=== PATIENT | female | born 1990 | race Caucasian/White ===

== ENCOUNTER → 2018-11-06 10:35 | Outpatient (CLI) | payer SELFPAY | PROVIDERS: Visit Provider Physician Assistant | DX: J02.9 Acute pharyngitis, unspecified (principal) | CPT/HCPCS: 87070; 87077 ==

== ENCOUNTER → 2019-06-11 17:36 | Outpatient (CLI) | payer SELFPAY ==
[2019-06-11 19:51] LABS: HCG Quantitative /Beta subunit 11147 mIU/mL
== END ==
PROVIDERS: Visit Provider Obstetrics & Gynecology
DX: O20.9 Hemorrhage in early pregnancy, unspecified (principal)
CPT/HCPCS: 36415; 84702

== ENCOUNTER → 2019-06-15 12:00 | Outpatient (CLI) | payer SELFPAY ==
[2019-06-15 13:39] LABS: HCG Quantitative /Beta subunit 30333 mIU/mL
== END ==
PROVIDERS: Visit Provider Obstetrics & Gynecology
DX: O20.9 Hemorrhage in early pregnancy, unspecified (principal); O20.0 Threatened abortion
CPT/HCPCS: 36415; 84702; 86850; 86900; 86901

== ENCOUNTER → 2019-09-21 12:14 | Outpatient (CLI) | payer BC, SELFPAY ==
--- NOTE | 2019-09-21 | DI.US.S_ITS ---
PROCEDURE: US OB >= 14 WEEKS FETUS INDICATIONS: 20 WEEK ANATOMY OUTSIDE/PRIOR DATING DATA: Last menstrual period (LMP): Unknown. LMP-based estimated date of delivery (ANUPAM): Not applicable. First dating scan (date and location): 06/26/19. Estimated date of delivery (ANUPAM) from first dating scan: 02/14/2020. TECHNIQUE: Real-time scanning was performed of the fetus, with image documentation and biometric measurements. Endovaginal scanning: Deferred COMPARISON: None. FINDINGS: General: A single living intrauterine gestation is present. Presentation: Vertex. Placenta: Placental position is fundal and anterior, without previa. Amniotic fluid index: 10.0 cm, normal range is 5-24 cm. heart rate: 130 beats per minute. Maternal cervical canal: 4.2 cm long. Normal lower limit is 2.5 cm. biometrics: Biparietal diameter: 4.6 cm, 19 weeks, 6 days Head circumference: 17.2 cm, 19 weeks, 5 days Abdominal circumference: 15.6 cm, 20 weeks, 5 days Femur length: 3.4 cm, 20 weeks, 4 days Estimated gestational age from initial scan: 19 weeks, one day. Composite gestational age from present scan: 20 weeks, 2 days Estimated weight and percentile: 361 g, 99th percentile Measurement variability for biometric dating: +/- 7 days from 14 weeks to 15 weeks 6 days gestation, +/- 10 days from 16 weeks to 21 weeks 6 days gestation, +/- 2 weeks from 22 weeks to 27 weeks 6 days gestation, +/- 3 weeks for 28 weeks gestation or later. weight reference: 4500 g or EFW >90/95% is considered macrosomia or large for gestational age. EFW <10% is small for gestational age. EFW 5% or less is considered intra-uterine growth restriction. Anatomic survey: Neuro: Ventricles are non-dilated at less than 10 mm. Cisterna magna is normal at 3-11 mm. Cerebellum is normal in size and morphology. Nuchal skin fold: Normal at less than 6 mm between 14-21 weeks gestational age. Face: Nose and lips, facial profile are normal. Spine: No evidence for spina bifida. Heart: 4-chambered heart is present, with normal ventricular outflow tracts. Diaphragm: Diaphragm is intact. Stomach: Left-sided stomach is present. Kidneys: No hydronephrosis. Normal is less than 5 mm in 2nd trimester, less than 7 mm in 3rd trimester. Cord: 3-vessel cord has orthotopic insertion. Bladder: Normal in size. Extremities: All 4 extremities identified. IMPRESSION: 1. Single living intrauterine with composite gestational age of 20 weeks, 2 days, 8 days ahead of the originally assigned gestational age. 2. Symmetric growth and normal anatomy. 3. Normal amniotic fluid volume. Dictated by: Ekta Fiore M.D. on 09/21/2019 at 15:38 Approved by: Ekta Fiore M.D. on 09/21/2019 at 15:49
== END ==
PROVIDERS: PCP Family Medicine; Visit Provider Family Medicine
DX: Z36.89 Encounter for other specified antenatal screening (principal); Z3A.20 20 weeks gestation of pregnancy
CPT/HCPCS: 76811

== ENCOUNTER → 2019-12-21 14:12 | Outpatient (CLI) | payer BC, SELFPAY ==
--- NOTE | 2019-12-21 14:18 | DI.US.S_ITS ---
PROCEDURE: US OB LIMITED INDICATIONS: SIZE GREATER THAN DATES OUTSIDE/PRIOR DATING DATA: Last menstrual period (LMP): Not available. LMP-based estimated date of delivery (ANUPAM): Not available. First dating scan (date and location): 06/26/2019 at . Estimated date of delivery (ANUPAM) from first dating scan: 02/14/2020. TECHNIQUE: Real-time scanning was performed of the fetus, with image documentation and biometric measurements. Biophysical profile was also obtained. Endovaginal scanning: Not performed COMPARISON: [facility], OB >= 14 WEEKS FETUS, 09/21/2019, 12:29. [facility], OB <= 14 WEEKS FETUS, 06/26/2019, 8:10. FINDINGS: General: A single living intrauterine gestation is present. Presentation: Vertex. Placenta: Placental position is anterior, without previa. Amniotic fluid index: Oh 0.9 cm, normal range is 5-24 cm; the largest pocket 6.2 cm. heart rate: 133 beats per minute. Maternal cervical canal: 4.7 cm long. Normal lower limit is 2.5 cm. biometrics: Biparietal diameter: 33 weeks 2 days Head circumference: 34 weeks 1 day Abdominal circumference: 35 weeks 2 days Femur length: 32 weeks 6 days Estimated gestational age from initial scan: 32 weeks 1 day. Composite gestational age from present scan: 33 weeks 6 days Estimated weight and percentile: 2399 gm; 95th percentile Measurement variability for biometric dating: +/- 7 days from 14 weeks to 15 weeks 6 days gestation, +/- 10 days from 16 weeks to 21 weeks 6 days gestation, +/- 2 weeks from 22 weeks to 27 weeks 6 days gestation, +/- 3 weeks for 28 weeks gestation or later. weight reference: 4500 g or EFW >90/95% is considered macrosomia or large for gestational age. EFW <10% is small for gestational age. EFW 5% or less is considered intra-uterine growth restriction. IMPRESSION: 1. A single living intrauterine gestation with appropriate interval growth. 2. The estimated weight is at the 95th percentile. Dictated by: Romy Freitas M.D. on 12/21/2019 at 17:07 Approved by: Romy Freitas M.D. on 12/21/2019 at 17:12
== END ==
PROVIDERS: PCP Family Medicine; Referring Provider Family Medicine; Visit Provider Family Medicine
DX: Z36.88 Encounter for antenatal screening for fetal macrosomia (principal); Z3A.32 32 weeks gestation of pregnancy
CPT/HCPCS: 76815

== ENCOUNTER → 2020-01-18 09:59 | Outpatient (ROUT) | payer BC, SELFPAY | PROVIDERS: PCP Family Medicine; Visit Provider Family Medicine | DX: Z34.90 Encounter for supervision of normal pregnancy, unspecified, unspecified trimester (principal) | CPT/HCPCS: 87081; 87147 ==

== ENCOUNTER → 2020-01-25 14:11 | Outpatient (CLI) | payer BC, SELFPAY ==
--- NOTE | 2020-01-25 | DI.US.S_ITS ---
PROCEDURE: US OB FOLLOW UP INDICATIONS: SIZE GREATER THAN DATES OUTSIDE/PRIOR DATING DATA: Last menstrual period (LMP): Not available. LMP-based estimated date of delivery (ANUPAM): Not available. First dating scan (date and location): 06/26/[address] Viera. Estimated date of delivery (ANUPAM) from first dating scan: 02/14/20, by Dr. Viera. TECHNIQUE: Real-time scanning was performed of the fetus, with image documentation. Endovaginal scanning: None needed for this study COMPARISON: None. FINDINGS: A single living intrauterine gestation is present. Presentation: Vertex. Placenta: Placental position is anterior fundal, without previa. Amniotic fluid index: 14.3 cm, normal range is 5-24 cm. heart rate: 147 beats per minute. Estimated gestational age from initial scan: 37 weeks 6 days. biometry is internally consistent with a current gestational age estimate of 37 weeks 6 days, with BPD 9.5 cm, 38 weeks 5 days. Head circumference 33.1 cm, 37 weeks 5 days. Abdominal circumference 33.9 cm, 37 weeks 5 days. Femur length 7.3 cm, 37 weeks 3 days. Estimated weight is 3306 g, 74th percentile. IMPRESSION: Single living intrauterine gestation, normal amniotic fluid volume. Appropriate interval growth, delivery date projected to be centered on 02/14/20. Dictated by: David Bernard M.D. on 01/25/2020 at 14:55 Approved by: David Bernard M.D. on 01/25/2020 at 14:57
== END ==
PROVIDERS: PCP Family Medicine; Referring Provider Family Medicine; Visit Provider Family Medicine
DX: Z36.88 Encounter for antenatal screening for fetal macrosomia (principal); Z3A.37 37 weeks gestation of pregnancy
CPT/HCPCS: 76816

== ENCOUNTER 2020-02-01 04:35 | Inpatient (IN) | payer BC, SELFPAY ==
[2020-02-01 05:37] VITALS: BP 134/85
[2020-02-01] MEDS: LACTATED RINGERS 1,000 ML 100 ML IV ×4 (05:47→14:21)
[2020-02-01] MEDS: CLINDAMYCIN 900 MG/50 ML PIGGYBACK 50 MG IV (05:47)
[2020-02-01 06:16] LABS: COVID19 -Nasal RAPID Negative (Negative)
[2020-02-01 06:35] LABS: Add Manual Diff / Slide Review NO; Basophils Absolute Auto 0 /uL (0-100); Basophils Percent Auto 0.2 % (0-2); Eosinophils Absolute Auto 100 /uL (0-450); Eosinophils Percent Auto 0.6 % (2-4); Hematocrit 35.1 % (36-46); Hemoglobin 11.7 g/dL (12.0-16.0); Lymphocytes Absolute Auto 1500 /uL (1100-4500); Lymphocytes Percent Auto 12.9 % (25-40); Mean Corpuscular HGB Conc 33.3 % (30-36); Mean Corpuscular Hemoglobin 28.8 PG (26-34); Mean Corpuscular Volume 86.8 fL (80-100); Monocytes Absolute Auto 1000 /uL (0-900); Monocytes Percent Auto 8.8 % (3-14); Neutrophils Absolute Auto 9000 /uL (1500-7000); Neutrophils Percent Auto 77.5 % (50-75); Platelet Count 148 X10^3/uL (150-400); Red Blood Cell Count 4.05 X10^6/uL (4.0-5.2); Red Cell Distribution Width 14.4 % (11.6-14.8); White Blood Cell Count 11.6 X10^3/uL (4.5-11.0)
[2020-02-01] MEDS: FENT 2MCG/ML BUPIV 0.125% EPI 200 MCG/100 ML PLAST..BAG 10 MCG EPIDURAL (07:50)
[2020-02-01] MEDS: OXYTOCIN 10 UNIT/ML VIAL 20 UNIT (13:05)
--- NOTE | 2020-02-01 13:42 | PM.OBPRVD ---
Labor & Delivery Delivery date: 02/01/20 Intrapartal events: None Cervical ripening method: none Induction method: none Delivery monitor: external FHT Route of delivery: L&D Laceration Description: Superficial Delivery repair: chromic Estimated blood loss (mL): 300 Anesthesia type: Epidural Complications: none Narrative: Identifying data: 29-year-old a 357 weeks estimated gestational age based on an EDC of 02/10/2020 based on LMP [place] and first-trimester ultrasound presents to labor and delivery with spontaneous onset of uterine contractions and spontaneous rupture membranes on presentation to Labor and delivery. She was grossly ruptured and found to be 3 cm dilated with regular contractions. She was admitted. Patient had an uncomplicated . Stage I lasted 5 hours and 10 minutes Patient took cap trial yesterday at approximately 12:00 p.m.. She had onset of contractions at 7:00 p.m. that were not painful they became more painful and awakened her at about 12:00 a.m.. They continued and at approximately 4:00 a.m. she had spontaneous rupture membranes of clear fluid and then she presented to labor and delivery. Patient started to have more regular more painful contractions and was requested epidural and this was placed at approximately 7:30 a.m.. It was felt that patient was active approximately 7:00 a.m.. Spontaneous rupture membranes 8 hours and 53 minutes prior to delivery, clear fluid. Patient continued to have progression. She had little urine output and so bowl this of 1 L of lactated Ringer's was given. There was some decreased variability with external heart monitor with baseline in the 140s. There were accelerations and no decelerations. It was a category 1 tracing. She was position placed on the peanut ball for a persistent anterior lip and then when she was repositioned sitting upright there is improvement in the variability of heart tracing. Overall category 1 tracing. External tocometer was used and patient did not require augmentation with Pitocin. She had regular uterine contractions every 2-3 minute. She was noted to be complete at 0 station at 12:10 p.m. on the date of delivery. Stage II lasted 33 minutes Patient was placed in stirrups due to epidural and was complete with 0 station when she began pushing at 12:20 p.m.. Due to previous history of shoulder dystocia we were prepared for the same. She was able to feel her contractions but was comfortable with epidural and was able to push effectively. Once she was able to bring the baby down to +1 station baby rapidly went to complete. Baby was delivered in left occiput anterior position. Head was delivered without difficulty and quickly felt for nuchal cord and then easily a anterior posterior shoulder were delivered. Some difficulty delivering abdomen but once I tucked my fingers underneath her axilla was able to easily pull the baby up and put the baby on mom's chest. Baby was vigorous at delivery. Apgars were 8 at 1 minute and 9 at 5 minutes. External heart monitoring was used throughout this stage. Once we started pushing heart tone baseline really went up to the 140s with accelerations after pushing and early deceleration to the 1 teens overall reassuring tracing. It was difficult because maternal heart rate was often times at the same as the baby's heart rate. Mom was able to keep the baby on the perineum and we are having difficulty getting the heart tones and so we have mom continue to push baby out. At the time of this dictation weight is pending. Mom and baby are in stable condition. Stage III lasted 8 minutes Normal spontaneous vaginal delivery of an intact Bible placenta. It was slow to release and I did have to extract some of the amniotic membranes with ring forceps. Ten milliunits of Pitocin was put in the IV bag. Estimated blood loss was 300 cc. In and out catheter was done because of the fluid bolus that was given and only 50 cc of urine was given. There were no vaginal or cervical tears. The cervix was bruised. There was a very superficial perineal laceration that was repaired with 3 0 chromic. At the time this dictation both mom and baby are in stable condition Plan for aftercare: routine
--- NOTE | 2020-02-01 14:07 | P.HPOB_ITS ---
OB HPI Date/Time Date of admission: 02/01/20 Date Patient Seen: 02/01/20 Time Patient Seen: 08:00 History of Present Condition Chief complaint: maternity : 3 Para: 2 Estimated Date of Delivery: 02/10/20 Estimated Gestational Age (weeks): 38 5/7 Narrative: Jaz Hodges is a 29 year old female at 38 and 5 7 weeks estimated gestational age based on an EDC of 02/10/2020 based on LMP and confirmed by first-trimester ultrasound presents to labor and delivery with spontaneous onset of uterine contractions and spontaneous rupture membranes at 4:00 a.m.. Patient was found to be 3 cm dilated and was admitted to the hospital. Patient denied any fevers or abdominal pain or cough. Baby has been very active. No swelling or headaches. care was begun early on in . Patient gained approximately 45 lb. Blood pressures were 1 teens to 136 over 50s to 70s. Serology A positive, antibody screen negative, rubella immune, syphilis nonreactive, hepatitis-B nonreactive hepatitis-C nonreactive no anemia. Quad screen was negative HIV test negative glucose tolerance test 116. Hemoglobin A1c was 4. Group B beta strep was positive. MSA fee was negative. Patient declined Tdap. Twenty week ultrasound was normal. Repeat ultrasound for size greater than dates and history of 8 lb 8 oz baby. Showed estimated weight at about 7-1/2 lb this was 1 week ago. No complications of this Past OB history 09/25/2015 at 41 weeks gestation induction. Normal spontaneous vaginal delivery with epidural for anesthesia with a 12 hour labor. There was a mild shoulder dystocia for 30-45 seconds and a nuchal cord x1 and baby's Apgars were 3 5 in 8. Baby received PPV but then recovered without problems. weight was 8 lb 8 oz. Past medical history: Unremarkable Medications none Past surgical history: [place] tooth extracted Healthier to behavior: Patient does not smoke and never has. Patient does not use alcohol. Patient does not use illicit drugs. Family history unremarkable congenital abnormalities Allergies: Penicillin Social history: Patient lives with her partner the father of the baby. Patient works at [employer] in [place]. Patient lives with her significant other and her daughter in a [place]. Review of systems: Negative for fever, negative for foul-smelling discharge, negative for abdominal pain, negative for headaches or lower extremity edema Evaluation Evaluation Laboratory results: Laboratory Tests 02/01/20 02/01/20 02/01/20 06:10 06:30 06:30 WBC 11.6 H RBC 4.05 Hgb 11.7 L Hct 35.1 L MCV 86.8 MCH 28.8 MCHC 33.3 RDW 14.4 Plt Count 148 L Neut % (Auto) 77.5 H Lymph % (Auto) 12.9 L Stephenson % (Auto) 8.8 Eos % (Auto) 0.6 L Baso % (Auto) 0.2 Neut # (Auto) 9000 H Lymph # (Auto) 1500 Stephenson # (Auto) 1000 H Eos # (Auto) 100 Baso # (Auto) 0 COVID-19 PCR Negative Blood Type A Positive Antibody Screen Negative [facility] Medical History (Updated 06/13/19 @ 15:55 by Orly Viera MD) Psoriasis (Chronic) Vaginal delivery (Resolved) Social History Smoking Status: Unknown if ever smoked alcohol intake: current Meds Home Medications and Allergies Home Medications Medication Instructions Recorded Confirmed Type No Known Home Medications 06/26/19 02/01/20 History Allergies Allergy/AdvReac Type Severity Reaction Status Date / Time Penicillins [PENICILLINS] Allergy Mild full body Verified 02/01/20 05:14 rash Review of Systems Review of Systems Narrative: Review of systems negative other than above Exam Vital Signs (past 8 hours): Afebrile, vital signs are stable HEENT unremarkable Neck: Supple without adenopathy Chest: Clear to auscultation without wheezes rhonchi or crackles Cor: Regular rate and rhythm without a murmur Abdomen: Gravid, vertex, estimated weight 7 half to 8 lb Extremities: No edema, pulses intact Cervical exam: Right-sided anterior lip with swelling. Negative one station heart tones 140s baselines with mild to moderate variability with occasional accelerations. No decelerations Overall category 1 tracing Uterine contractions every 2-3 minutes Objective Labs Result Diagrams: 02/01/20 06:30 Labs: Laboratory Results - last 24 hr 02/01/20 02/01/20 02/01/20 06:10 06:30 06:30 WBC 11.6 H RBC 4.05 Hgb 11.7 L Hct 35.1 L MCV 86.8 MCH 28.8 MCHC 33.3 RDW 14.4 Plt Count 148 L Neut % (Auto) 77.5 H Lymph % (Auto) 12.9 L Stephenson % (Auto) 8.8 Eos % (Auto) 0.6 L Baso % (Auto) 0.2 Neut # (Auto) 9000 H Lymph # (Auto) 1500 Stephenson # (Auto) 1000 H Eos # (Auto) 100 Baso # (Auto) 0 COVID-19 PCR Negative Blood Type A Positive Antibody Screen Negative Assessment and Plan Assessment and Plan Assessment and Plan narrative: 29-year-old at 38 and 5 7 weeks estimated gestational age in active labor with epidural in place and comfortable GBS positive Plan status post 1 dose clindamycin due to penicillin allergy History of shoulder dystocia, mild Plan will prepare to adequately deal with above. This baby appears to be smaller. Glucose tolerance test 116 Expectant management Reassuring heart tones and tracing. Will continue with present management. Patient is comfortable. Uterine contractions are regular and appear adequate. Rupture membranes spontaneous of clear fluid and patient afebrile A positive, rubella immune
[2020-02-01] MEDS: IBUPROFEN 600 MG TABLET PO ×2 (15:57→22:39)
[2020-02-01] MEDS: LANOLIN OINT 7 GM 1 APPLIC TOP (15:57)
[2020-02-02] MEDS: IBUPROFEN 600 MG TABLET PO (07:51)
[2020-02-02] MEDS: DERMOPLAST SPRAY 20% 60 ML 1 SPRAY TOP (07:51)
[2020-02-02] MEDS: DOCUSATE 100 MG CAPSULE PO (07:53)
[2020-02-02] MEDS: PRENATAL VIT,CALC/IRON/FOLIC 1 TABLET 1 TAB PO (07:53)
[2020-02-02 08:10] LABS: Hematocrit 28.6 % (36-46); Hemoglobin 9.6 g/dL (12.0-16.0)
--- NOTE | 2020-02-02 08:32 | P.DS_ITS ---
Discharge Providers Provider Date of admission: 02/01/20 04:35 Discharge Date: 02/02/20 Primary care physician: Belen Santiago MD Consults: 02/01/20 04:52 Consult to Anesthesiology Urgent Comment: Consulting Provider: Anesthesiologist Reason for consultation: Pain management for labor Has provider been notified: No 02/02/20 13:38 Consult to [facility] Fertility Extension Specialist Routine Comment: Discharge provider: Belen Santiago MD Summary Hospital Course Date Patient Seen: 02/02/20 Time Patient Seen: 08:33 Procedures: Epidural anesthesia Normal spontaneous vaginal delivery Hospital Course: Patient admitted to the hospital in active labor. Patient had normal spontaneous vaginal delivery. Patient had routine recovery. Patient was GBS positive and received 1 dose of clindamycin. Patient was discharged home on day 1. In stable condition with routine precautions Peripartum Data Delivery Method: Natural Vaginal Laceration description: Superficial complications: none Status at Discharge Cognitive/behavioral status at discharge: oriented Functional status at discharge: independent ambulation Overall status at discharge: patient is progressing back to baseline Time Spent with Patient Time attestation: Total time spent providing and/or coordinating discharge services: 30 minutes Objective Labs Result Diagrams: 02/02/20 07:40 Labs: Laboratory Results - last 24 hr 02/02/20 07:40 Hgb 9.6 L Hct 28.6 L Exam Narrative Exam Narrative: Afebrile vital signs are stable Chest: Clear to auscultation without wheezes rhonchi or crackles Cor: Regular rate and rhythm without murmur Abdomen: Positive bowel sounds, soft, nontender. Uterus is firm and well below the umbilicus, nontender Extremities: No edema, pulses intact Discharge Plan Discharge Plan Patient Disposition: Home Discharge orders & Medications Prescriptions: New docusate sodium [DOK] 100 mg Capsule 100 mg PO DAILY Qty: 30 RF: 0 ibuprofen 600 mg Tablet 600 mg PO Q6HR PRN (Reason: Pain, Mild (1-3)) Qty: 30 RF: 0 No Action No Known Home Medications RF: 0 Follow up/Referrals: Belen Santiago MD [Primary Care Provider] - Discharge Data Primary Care Provider: Belen Santiago
[2020-02-02 08:42] VITALS: BP 122/72; PULSE 93; RESP 17; TEMP 36.5
== END 2020-02-02 13:33 | disposition home or self-care (01) | DRG 807 ==
PROVIDERS: Admitting Provider Family Medicine; PCP Family Medicine; Referring Provider Family Medicine; Visit Provider Family Medicine
DX: O99.824 Streptococcus B carrier state complicating childbirth (principal); Z37.0 Single live birth; O70.0 First degree perineal laceration during delivery; Z3A.38 38 weeks gestation of pregnancy; O69.81X0 Labor and delivery complicated by cord around neck, without compression, not applicable or unspecified
CPT/HCPCS: 01967; 36415; 59050; 85014; 85018; 85025; 86850; 86900; 86901; 87635; G0379; J2590

== ENCOUNTER → 2020-08-07 12:14 | Outpatient (CLI) | payer BC, SELFPAY ==
--- NOTE | 2020-08-07 | DI.US.S_ITS ---
PROCEDURE: US OB <= 14 WEEKS FETUS INDICATIONS: SIZE AND DATES OUTSIDE/PRIOR DATING DATA: Last menstrual period (LMP): 05/22/2020. LMP-based estimated date of delivery (ANUPAM): 02/25/2021. First dating scan (date and location): 08/07/2020. Estimated date of delivery (ANUPAM) from first dating scan: 02/23/2021. TECHNIQUE: Real-time scanning was performed of the fetus and maternal pelvic organs, with image documentation. Endovaginal scanning was also performed to better visualize the fetus and maternal ovaries. COMPARISON: [facility], , OB <= 14 WEEKS FETUS, 06/26/2019, 8:10. FINDINGS: Embryo: There is an intrauterine gestation with the estimated gestational age 11 weeks 3 days. cardiac activity is present with heart rate 178 BPM. A small 1.0 x 0.9 x 1.2 cm hypoechoic area is seen right of the gestational sac, compatible with a small perigastric and a bleed. Measurement variability in dating: +/- 4 weeks by LMP, +/- 7 days by mean sac diameter (use before 6 weeks gestation if crown-rump length not able to be measured), +/- 5 days by crown-rump length (up to 8 weeks 6 days gestation), +/- 7 days by crown-rump length (up to 13 weeks 6 days gestation). Maternal organs: Right ovary is seen on transabdominal scan and appears normal. Left ovary is not visualized. Limited images through the kidneys demonstrate no hydronephrosis. IMPRESSION: 1. A single living intrauterine gestation with an estimated gestational age of 11 weeks 3 days corresponding to ultrasound ANUPAM 02/23/2021. 2. A small peritoneal bleed. 3. Ovaries are not well seen. Right ovary is seen on trans abdominal scan only and appears unremarkable. Left ovary is not visualized. Dictated by: Romy Freitas M.D. on 08/07/2020 at 14:41 Approved by: Romy Freitas M.D. on 08/07/2020 at 14:45
== END ==
PROVIDERS: PCP Family Medicine; Referring Provider Family Medicine; Visit Provider Family Medicine
DX: Z36.87 Encounter for antenatal screening for uncertain dates (principal); Z3A.11 11 weeks gestation of pregnancy
CPT/HCPCS: 76801; 76830

== ENCOUNTER → 2020-09-30 12:16 | Outpatient (CLI) | payer BC, SELFPAY ==
--- NOTE | 2020-09-30 12:17 | DI.US.S_ITS ---
PROCEDURE: US OB LIMITED INDICATIONS: NO HEART RATE OUTSIDE/PRIOR DATING DATA: Last menstrual period (LMP): 05/22/2020. LMP-based estimated date of delivery (ANUPAM): 02/26/2021. First dating scan (date and location): 08/07/2020 at [facility]. Estimated date of delivery (ANUPAM) from first dating scan: 02/23/2021. TECHNIQUE: Real-time scanning was performed of the fetus, with image documentation. Endovaginal scanning: Not performed. COMPARISON: Located within [facility], OB <= 14 WEEKS FETUS, 08/07/2020, 12:26. Located within [facility], OB LIMITED, 12/21/2019, 14:23. FINDINGS: General: A single living intrauterine gestation is present. Presentation: Breech Placenta: Placental position is posterior. Lower margin of the placenta is 2.8 cm from the internal cervical os. Amniotic fluid index: 13 cm, normal range is 5-24 cm. heart rate: 155 beats per minute. Maternal cervical canal: 5.7 cm long. Normal lower limit is 2.5 cm. biometrics: Estimated gestational age from initial scan: 19 weeks 1 day. IMPRESSION: Single live intrauterine . heart rate 155 beats per minute. Dictated by: Jose Farah M.D. on 09/30/2020 at 16:04 Approved by: Jose Farah M.D. on 09/30/2020 at 16:09
== END ==
PROVIDERS: PCP Family Medicine; Referring Provider Family Medicine; Visit Provider Family Medicine
DX: Z36.89 Encounter for other specified antenatal screening (principal); Z3A.19 19 weeks gestation of pregnancy
CPT/HCPCS: 76815

== ENCOUNTER → 2020-10-13 10:45 | Outpatient (CLI) | payer BC, SELFPAY ==
--- NOTE | 2020-10-13 | DI.US.S_ITS ---
PROCEDURE: US OB >= 14 WEEKS FETUS INDICATIONS: ANATOMY OUTSIDE/PRIOR DATING DATA: Last menstrual period (LMP): 05/22/2020. LMP-based estimated date of delivery (ANUPAM): 02/26/2021 . First dating scan (date and location): 08/07/2020 . Estimated date of delivery (ANUPAM) from first dating scan: 02/23/2021 . TECHNIQUE: Real-time scanning was performed of the fetus, with image documentation and biometric measurements. Endovaginal scanning: No COMPARISON: [facility], OB >= 14 WEEKS FETUS, 09/21/2019, 12:29. FINDINGS: General: A single living intrauterine gestation is present. Presentation: Variable. Placenta: Placental position is posterior , without previa. Amniotic fluid index: 11.7 cm, normal range is 5-24 cm. heart rate: 158 beats per minute. Maternal cervical canal: 6.7 cm long. Normal lower limit is 2.5 cm. biometrics: Biparietal diameter: 20 weeks 2 days Head circumference: 20 weeks 2 days Abdominal circumference: 22 weeks 2 days Femur length: 20 weeks 3 days Estimated gestational age from initial scan: 21 weeks Composite gestational age from present scan: 20 weeks 6 days Estimated weight and percentile: 4 in 13 g; 61st percentile Measurement variability for biometric dating: +/- 7 days from 14 weeks to 15 weeks 6 days gestation, +/- 10 days from 16 weeks to 21 weeks 6 days gestation, +/- 2 weeks from 22 weeks to 27 weeks 6 days gestation, +/- 3 weeks for 28 weeks gestation or later. weight reference: 4500 g or EFW >90/95% is considered macrosomia or large for gestational age. EFW <10% is small for gestational age. EFW 5% or less is considered intra-uterine growth restriction. Anatomic survey: Neuro: Ventricles are non-dilated at less than 10 mm. Cisterna magna is normal at 3-11 mm. Cerebellum is normal in size and morphology. Nuchal skin fold: Normal at less than 6 mm between 14-21 weeks gestational age. Face: Nose and lips, facial profile are normal. Spine: No evidence for spina bifida. Heart: Suboptimally visualized. Diaphragm: Diaphragm is intact. Stomach: Left-sided stomach is present. Kidneys: No hydronephrosis. Normal is less than 5 mm in 2nd trimester, less than 7 mm in 3rd trimester. Cord: 3-vessel cord has orthotopic insertion. Bladder: Normal in size. Extremities: All 4 extremities identified. IMPRESSION: 1. Normal interval growth. 2. heart suboptimally visualized; otherwise normal anatomy. Follow-up recommended. Dictated by: Asim Belcher [facility] Interpreted: Trent Johnson MD on 10/13/2020 at 15:19 Approved by: Trent Johnson M.D. on 10/13/2020 at 16:00
== END ==
PROVIDERS: PCP Family Medicine; Referring Provider Family Medicine; Visit Provider Family Medicine
DX: Z36.89 Encounter for other specified antenatal screening (principal); Z3A.20 20 weeks gestation of pregnancy
CPT/HCPCS: 76811

== ENCOUNTER → 2020-11-03 09:38 | Outpatient (CLI) | payer BC, SELFPAY ==
--- NOTE | 2020-11-03 | DI.US.S_ITS ---
PROCEDURE: US OB FOLLOW UP INDICATIONS: heart rate not visualized on 20 week Anatomy OUTSIDE/PRIOR DATING DATA: Last menstrual period (LMP): 05/22/2020 . LMP-based estimated date of delivery (ANUPAM): 02/26/2021 . First dating scan (date and location): 08/07/2020 at . Estimated date of delivery (ANUPAM) from first dating scan: 02/23/2021. TECHNIQUE: Real-time scanning was performed of the fetus, with image documentation and biometric measurements. Endovaginal scanning: Not performed COMPARISON: [facility] OB >= 14 WEEKS FETUS, 10/13/2020, 10:57. [facility] OB LIMITED, 09/30/2020, 12:24. [facility] OB <= 14 WEEKS FETUS, 08/07/2020, 12:26. [facility] OB FOLLOW UP, 01/25/2020, 14:25. FINDINGS: General: A single living intrauterine gestation is present. Presentation: Variable. Placenta: Placental position is posterior , without previa. Amniotic fluid index: 11.7 cm, normal range is 5-24 cm; largest pocket 4.2 cm. heart rate: 158 beats per minute. Maternal cervical canal: 6.7 cm long. Normal lower limit is 2.5 cm. biometrics: Biparietal diameter: 20 weeks 2 days Head circumference: 20 weeks 2 days Abdominal circumference: 22 weeks 2 days Femur length: 20 weeks 3 days Estimated gestational age from initial scan: 20 weeks 0 day. Composite gestational age from present scan: 20 weeks 6 days Estimated weight and percentile: 413 gm; 61% for gestational age Measurement variability for biometric dating: +/- 7 days from 14 weeks to 15 weeks 6 days gestation, +/- 10 days from 16 weeks to 21 weeks 6 days gestation, +/- 2 weeks from 22 weeks to 27 weeks 6 days gestation, +/- 3 weeks for 28 weeks gestation or later. weight reference: 4500 g or EFW >90/95% is considered macrosomia or large for gestational age. EFW <10% is small for gestational age. EFW 5% or less is considered intra-uterine growth restriction. Other: heart appears normal (normal four-chamber view and outflow tracts). IMPRESSION: 1. A single living intrauterine gestation with appropriate interval growth. 2. Normal heart. Dictated by: Romy Freitas M.D. on 11/04/2020 at 9:56 Approved by: Romy Freitas M.D. on 11/04/2020 at 10:01
== END ==
PROVIDERS: PCP Family Medicine; Referring Provider Family Medicine; Visit Provider Family Medicine
DX: Z36.2 Encounter for other antenatal screening follow-up (principal); Z3A.20 20 weeks gestation of pregnancy
CPT/HCPCS: 76816

== ENCOUNTER 2021-02-02 03:30 | Observation (INO) | payer BC, SELFPAY ==
[2021-02-02 07:16] LABS: Appearance Urine UA CLEAR; Bilirubin Urine UA NEGATIVE (NEGATIVE); Color Urine UA YELLOW; Glucose Urine UA NEGATIVE (Negative); Ketones Urine UA NEGATIVE (NEGATIVE); Leukocyte Esterase Urine UA TRACE (NEGATIVE); Nitrite Urine UA NEGATIVE (Negative); Occult Blood Urine UA TRACE-INTACT (Negative); Protein Urine UA TRACE (Negative); Specific Gravity Urine UA 1.015 (1.000-1.035); Urobilinogen Urine UA 0.2 E.U./dL (0.2)
[2021-02-02 07:20] LABS: pH Urine UA 6.5 (4.5-8.0)
[2021-02-02 07:39] LABS: RBC Urine 0-1/HPF (0-5/HPF); WBC Urine 1-5/HPF (0-5/HPF)
[2021-02-02 07:40] LABS: Bacteria Urine Moderate (10-30); Culture Indicated Urine Cult Not Indicated; Squamous Epithelial Cell Urine 5-10 /HPF (0-5/HPF)
== END 2021-02-02 07:10 | disposition home or self-care (01) ==
LOC: LABOR 03:34
PROVIDERS: Admitting Provider Family Medicine; PCP Family Medicine; Referring Provider Family Medicine; Visit Provider Family Medicine
DX: O47.03 False labor before 37 completed weeks of gestation, third trimester (principal); Z3A.36 36 weeks gestation of pregnancy
CPT/HCPCS: 59025; 59050; 81001; G0378; G0379

== ENCOUNTER → 2021-02-03 10:30 | Outpatient (CLI) | payer BC, SELFPAY ==
--- NOTE | 2021-02-03 | DI.US.S_ITS ---
PROCEDURE: US OB LIMITED INDICATIONS: Size greater than dates OUTSIDE/PRIOR DATING DATA: Last menstrual period (LMP): 05/22/20. LMP-based estimated date of delivery (ANUPAM): 02/26/21 First dating scan (date and location): 08/07/20 Estimated date of delivery (ANUPAM) from first dating scan: TECHNIQUE: Real-time scanning was performed of the fetus, with image documentation. Endovaginal scanning: Not needed COMPARISON: [facility], OB LIMITED, 09/30/2020, 12:24. [facility], OB LIMITED, 12/21/2019, 14:23. FINDINGS: A single living intrauterine gestation is present. Presentation: Vertex Placenta: Placental position is posterior , without previa. Amniotic fluid index: 15.3 cm, normal range is 5-24 cm. heart rate: 153 beats per minute. Estimated gestational age from initial scan: 37 weeks 1 day Current biometry establishes a gestational age of 37 weeks 3 days and therefore there has been appropriate interval growth. The current estimated weight is 3201 g, at the 64th percentile. This does not support a diagnosis of macrosomia. BPD 9.4 cm, 38 weeks 0 days. Head circumference 33.2 cm, 37 weeks 3 days abdominal circumference 32.8 cm, 37 weeks 3 days. Femur length 7.2 cm, 37 weeks 0 days. . IMPRESSION: Appropriate interval growth, no sign of macrosomia or abnormal amniotic fluid volume. Vertex presentation precluded clear visualization of the maternal cervical canal. Dictated by: David Bernard M.D. on 02/03/2021 at 16:19 Approved by: David Bernard M.D. on 02/03/2021 at 16:22
== END ==
PROVIDERS: PCP Family Medicine; Referring Provider Family Medicine; Visit Provider Family Medicine
DX: Z36.88 Encounter for antenatal screening for fetal macrosomia (principal); Z3A.37 37 weeks gestation of pregnancy; O23.43 Unspecified infection of urinary tract in pregnancy, third trimester
CPT/HCPCS: 76815; 87077; 87081; 87086; 87147

== ENCOUNTER → 2021-02-03 12:59 | Outpatient (ROUT) | payer BC, SELFPAY | PROVIDERS: PCP Family Medicine; Visit Provider Family Medicine | DX: O23.40 Unspecified infection of urinary tract in pregnancy, unspecified trimester (principal) | CPT/HCPCS: 87081; 87086 ==

== ENCOUNTER 2021-02-12 23:22 | Observation (INO) | payer BC, SELFPAY | END 2021-02-13 01:40 | disposition home or self-care (01) | LOC: LABOR 23:24 | PROVIDERS: Admitting Provider Family Medicine; PCP Family Medicine; Referring Provider Family Medicine; Visit Provider Family Medicine | CPT/HCPCS: 59025; G0378; G0379 ==

== ENCOUNTER 2021-02-13 03:33 | Inpatient (IN) | payer BC, SELFPAY ==
[2021-02-13 04:20] LABS: Add Manual Diff / Slide Review NO; Basophils Absolute Auto 100 /uL (0-100); Eosinophils Absolute Auto 100 /uL (0-450); Eosinophils Percent Auto 0.6 % (2-4); Hematocrit 39.9 % (36-46); Hemoglobin 13.5 g/dL (12.0-16.0); Lymphocytes Absolute Auto 1900 /uL (1100-4500); Lymphocytes Percent Auto 16.1 % (25-40); Mean Corpuscular HGB Conc 33.8 % (30-36); Mean Corpuscular Hemoglobin 31.5 PG (26-34); Mean Corpuscular Volume 93.3 fL (80-100); Monocytes Absolute Auto 1000 /uL (0-900); Monocytes Percent Auto 8.8 % (3-14); Neutrophils Absolute Auto 8400 /uL (1500-7000); Neutrophils Percent Auto 73.5 % (50-75); Platelet Count 115 X10^3/uL (150-400); Red Blood Cell Count 4.28 X10^6/uL (4.0-5.2); Red Cell Distribution Width 14.6 % (11.6-14.8); White Blood Cell Count 11.5 X10^3/uL (4.5-11.0)
[2021-02-13] MEDS: LACTATED RINGERS 1,000 ML 100 ML IV ×2 (04:21→07:22)
[2021-02-13 05:16] LABS: COVID19 - ADMIT (NP swab/PCR) Negative (Negative)
[2021-02-13] MEDS: OXYTOCIN 10 UNIT/ML VIAL 20 UNIT (08:35)
[2021-02-13 09:07] VITALS: BP 131/70; PULSE 102; RESP 16; TEMP 36.4
--- NOTE | 2021-02-13 09:10 | PM.OBPRVD ---
Labor & Delivery Delivery date: 02/13/21 Intrapartal Events: None Cervical ripening method: none Induction method: none Delivery monitor: external FHT and external uterine Route of delivery: Episiotomy description: None L&D Laceration Description: Perineal - 1st Degree Estimated blood loss (mL): 350 Anesthesia Type: Epidural Complications: none Narrative: Identifying data: 30-year-old at 38 weeks estimated gestational age based on 1st trimester ultrasound and LMP with EDC of 02/26/2021 presents to Labor and delivery with complaints of spontaneous onset rupture membranes. This occurred at 3:00 a.m.. Patient has had contractions earlier on in the night went to labor and delivery was only 2 cm dilated. When she came back after rupture membranes she was found to be 6 cm was admitted to the hospital an epidural placed. was unremarkable other than GBS positive status. Stage I lasted for hours and 50 minutes Patient presented to Labor and delivery after spontaneous rupture membranes at 3:00 a.m. while at home. Patient had been in labor and delivery earlier was sent home at approximately 2:00 a.m. and was only 2 cm dilated. When she returned at approximately 4:30 a.m. she was found to be grossly ruptured with clear fluid and 6 cm dilated. She was felt to be in active labor at the time of rupture membranes at 3:00 a.m.. She was given 1 dose of clindamycin 900 mg IV due to GBS positive and penicillin allergy. Patient was requesting an epidural and this was placed at approximately 5:00 a.m.. External heart monitor and tocometer were used throughout stage I. Patient had baseline in the 120s to 130s with moderate variability and accelerations. There were periods of decreased variability that seemed to be position all and these resolved with switching patient to her back. There were occasional decelerations that were mild and variable somewhere late placed. Overall category 1 tracing. Patient was noted to be completed the time of my arrival at 7:50 a.m.. There was a swollen anterior lip which was easily pushed over the head. There was a fair amount of bloody show at this time. We then prepared for pushing. An in out catheter obtained 100 cc of urine. Stage II lasted 17 minutes Patient had a very effective very dense epidural. Patient was still able to push well and fairly quickly brought the baby down to +2 station. We started at 0 station. Next paternal tocometer and heart monitor were used throughout this stage with increase in baseline to the 130s with improvement in variability with accelerations in decelerations into the low 100s with pushing which quickly recovered. Mom continue to have regular contractions every 2-3 minutes apart was feeling them. She pushed effectively and baby's head was delivered in left occiput anterior presentation. There was a hand by the face but this was not a compound presentation. Some difficulty delivering the anterior shoulder but mom was laid flat and legs were moved back and then anterior shoulder delivered and then quickly the posterior shoulder and then there was somewhat of a body dystocia but I was able to deliver the remainder of the baby quickly and baby was placed on mom's chest and was vigorous at delivery. 30 seconds past before clamping and cutting the cord. Baby's Apgars were 9 at 1 minute and 9 at 5 minutes. Stage III lasted 12 minutes Normal spontaneous vaginal delivery of a thick large placenta with a central cord insertion. Very large cord and thick cord. There was minimal calcifications. Pitocin 20 units IM was given. There was 350 cc of blood loss. There was a small amount of membranes protruding from the cervix which was removed. The cervix showed evidence of bruising. There were no vaginal sidewall tears there were no periurethral tears there was a mild superficial skid misty over the perineum that was repaired with 3-0 chromic. At the time of this dictation both mom and baby are doing excellent Plan for aftercare: Routine care
--- NOTE | 2021-02-13 09:22 | PM.OBHP.1 ---
OB HPI Date/Time Date of admission: 02/13/21 Date Patient Seen: 02/13/21 Time Patient Seen: 04:23 History of Present Condition Chief complaint: Evaluation of Labor : 3 Para: 2 Estimated Date of Delivery: 02/26/21 Estimated Gestational Age (weeks): 38 Narrative: Jaz Hodges is a 30 year old female at 38 weeks gestation based on a LMP and 1st trimester ultrasound with an EDC of 02/26/2021. Patient presents to Labor and delivery with complaints of spontaneous rupture membranes at 3:00 a.m. a clear fluid. Patient was grossly ruptured. Patient was having regular uterine contractions found to be 6 cm dilated and was admitted to Labor and delivery. Patient had been in earlier in the night with uterine contractions without cervical change was sent home. Patient was measuring large but ultrasound showed baby in the 64th percentile. Patient had unremarkable . She did have an episode at approximately 35 weeks of of uterine contractions without cervical change. Patient did take castor oil ago for a long while [place] to try day stimulate labor. Patient had unremarkable . History of Present care: good care Dating criteria: LMP confirmed by 1st trimester US Ultrasounds: normal 1st trimester US and normal mid trimester US Obstetrical complications: none Medical complications: none Preadmission Labs Blood type: A (+) positive -: Antibody screen: negative, GBS status: positive, HBsAG: negative, HIV: negative, HSV 1: negative, HSV 2: negative and RPR/VDLR: negative -: Chlamydia screen: not detected and Gonorrhea screen: not detected -: Rubella: immune HCT: 35.5 HCAB: negative PAP: Normal Quad screen: Normal 1 hr GTT: 95 Prior (ies) History: 09/25/2015 at 41 weeks gestation induction viable female weighing 8 lb 7 oz name Gabi. Epidural was placed. This was at [facility]. 2 hours of pushing in baby was stunned and required resuscitation at delivery. 02/01/2020 at 38 and 4 7 weeks estimated gestational age spontaneous labor viable female infant weighing 7 lb 14 oz name Shiva born at [facility] with epidural no complications Evaluation Evaluation Laboratory results: Laboratory Tests 02/13/21 02/13/21 02/13/21 03:45 03:50 03:50 WBC 11.5 H RBC 4.28 Hgb 13.5 Hct 39.9 MCV 93.3 MCH 31.5 MCHC 33.8 RDW 14.6 Plt Count 115 L Neut % (Auto) 73.5 Lymph % (Auto) 16.1 L [place] % (Auto) 8.8 Eos % (Auto) 0.6 L Baso % (Auto) 1.0 Neut # (Auto) 8400 H Lymph # (Auto) 1900 [place] # (Auto) 1000 H Eos # (Auto) 100 Baso # (Auto) 100 SARS-CoV-2 (PCR) Negative Blood Type A Positive Antibody Screen Negative [facility] Medical History Psoriasis Vaginal delivery Social History Smoking Status: Unknown if ever smoked alcohol intake: current Meds Home Medications and Allergies Home Medications Medication Instructions Recorded Confirmed Type No Known Home Medications 06/26/19 02/01/20 History docusate sodium [DOK] 100 mg PO DAILY #30 cap 02/02/20 Rx ibuprofen 600 mg PO Q6HR PRN #30 tab 02/02/20 Rx Allergies Allergy/AdvReac Type Severity Reaction Status Date / Time Penicillins [PENICILLINS] Allergy Mild full body Verified 02/01/20 05:14 rash Review of Systems Review of Systems Narrative: Negative for any swelling or headaches. Negative for any breathing difficulties negative for any abdominal pain Exam Vital Signs (past 8 hours): Afebrile vital signs are stable Neck is supple without thyromegaly Chest clear to auscultation without wheezes rhonchi or crackles Cor: Regular rate and rhythm without any murmur Abdomen gravid vertex estimated weight 8 lb Extremities no edema DTRs intact Cervical exam anterior lip which is easily reduced and stays reduced but there is swelling over the anterior lip. Fair amount of bloody show. heart monitor shows baseline in the 120s with periods of decreased variability, accelerations, variable D cells, category 2 tracing Objective Labs Result Diagrams: 02/13/21 03:50 Labs: Laboratory Results - last 24 hr 02/13/21 02/13/21 02/13/21 03:45 03:50 03:50 WBC 11.5 H RBC 4.28 Hgb 13.5 Hct 39.9 MCV 93.3 MCH 31.5 MCHC 33.8 RDW 14.6 Plt Count 115 L Neut % (Auto) 73.5 Lymph % (Auto) 16.1 L [place] % (Auto) 8.8 Eos % (Auto) 0.6 L Baso % (Auto) 1.0 Neut # (Auto) 8400 H Lymph # (Auto) 1900 [place] # (Auto) 1000 H Eos # (Auto) 100 Baso # (Auto) 100 SARS-CoV-2 (PCR) Negative Blood Type A Positive Antibody Screen Negative Assessment and Plan Assessment and Plan Assessment and Plan narrative: 30-year-old at 38 weeks estimated gestational age with uncomplicated other than GBS positive in active labor now complete Plan: Will proceed to pushing Status post 1 dose of clindamycin for GBS positive Epidural effectively working Reassuring heart tones
[2021-02-13] MEDS: OXYTOCIN PREMIX 30 UNIT/500 ML PLAST..BAG 200 UNIT IV (09:28)
[2021-02-13] MEDS: METHYLERGONOVINE 0.2 MG/ML VIAL IM (09:29)
[2021-02-13] MEDS: TRANEXAMIC ACID 1,000 MG in SODIUM CHLORIDE 0.9% 100 ML 200 ML IV (10:18)
[2021-02-13] MEDS: IBUPROFEN 600 MG TABLET PO ×2 (12:51→19:05)
[2021-02-13 13:45] VITALS: BP 119/70
[2021-02-13 16:32] LABS: Hematocrit 32.7 % (36-46); Hemoglobin 11.2 g/dL (12.0-16.0)
[2021-02-14] MEDS: IBUPROFEN 600 MG TABLET PO ×2 (01:00→06:44)
[2021-02-14 06:27] LABS: Add Manual Diff / Slide Review NO; Basophils Absolute Auto 0 /uL (0-100); Basophils Percent Auto 0.3 % (0-2); Eosinophils Absolute Auto 100 /uL (0-450); Eosinophils Percent Auto 0.7 % (2-4); Hematocrit 30.3 % (36-46); Hemoglobin 10.4 g/dL (12.0-16.0); Lymphocytes Absolute Auto 1700 /uL (1100-4500); Lymphocytes Percent Auto 16.3 % (25-40); Mean Corpuscular HGB Conc 34.4 % (30-36); Mean Corpuscular Hemoglobin 32.4 PG (26-34); Monocytes Absolute Auto 900 /uL (0-900); Monocytes Percent Auto 9.3 % (3-14); Neutrophils Absolute Auto 7500 /uL (1500-7000); Neutrophils Percent Auto 73.4 % (50-75); Platelet Count 105 X10^3/uL (150-400); Red Blood Cell Count 3.22 X10^6/uL (4.0-5.2); Red Cell Distribution Width 14.3 % (11.6-14.8); White Blood Cell Count 10.2 X10^3/uL (4.5-11.0)
--- NOTE | 2021-02-14 12:06 | P.DS_ITS ---
Discharge Providers Provider Date of admission: 02/13/21 03:33 Discharge Date: 02/14/21 Primary care physician: Belen Santiago MD Consults: 02/13/21 04:12 Consult to Anesthesiology Urgent Comment: Consulting Provider: Frederic Bowling Reason for consultation: labor analgesia Has provider been notified: Yes 02/14/21 09:07 Consult to Presentation Specialist Routine Comment: Discharge provider: Flori Frey MD Summary Hospital Course Date Patient Seen: 02/14/21 Time Patient Seen: 11:30 Diagnoses: 1. 30 yo 2. Status post at 38w1d 3. GBS positive Hospital Course: Unremarkable. Mother is well. Tolerating full diet with no nausea vomiting. Ambulating well. Lochia less than menses. On day of discharge, she is afebrile with stable vital signs throughout. Status at Discharge Cognitive/behavioral status at discharge: at baseline, oriented Time Spent with Patient Time attestation: Total time spent providing and/or coordinating discharge services: 35. Objective Labs Result Diagrams: 02/14/21 06:01 Labs: Laboratory Results - last 24 hr 02/13/21 02/14/21 16:00 06:01 WBC 10.2 RBC 3.22 L Hgb 11.2 L 10.4 L Hct 32.7 L 30.3 L MCV 94.0 MCH 32.4 MCHC 34.4 RDW 14.3 Plt Count 105 L Neut % (Auto) 73.4 Lymph % (Auto) 16.3 L [place] % (Auto) 9.3 Eos % (Auto) 0.7 L Baso % (Auto) 0.3 Neut # (Auto) 7500 H Lymph # (Auto) 1700 [place] # (Auto) 900 Eos # (Auto) 100 Baso # (Auto) 0 Exam Narrative Exam Narrative: General: NAD Skin: Color unremarkable, no rash nor lesions HEENT: Neck supple with midline trachea Lungs: CTAB Heart: Normal rate and regular rhythm, S1, S2 normal, no murmurs, click, rub or gallop Abdomen: FF, U-1, soft, non-tender, +BS Extremities: No edema, no cyanosis Discharge Plan Discharge Plan Patient Disposition: Home Discharge orders & Medications Prescriptions: New ibuprofen 600 mg Tablet 600 mg PO Q6HR PRN (Reason: Pain, Mild (1-3)) Qty: 45 RF: 1 Prenatabs Rx 29 mg iron- 1 mg Tablet 1 tab PO DAILY Qty: 90 RF: 3 Continued docusate sodium [DOK] 100 mg Capsule 100 mg PO DAILY Qty: 30 RF: 0 Follow up/Referrals: Belen Santiago MD [Primary Care Provider] - (Please make an appointment in 4 weeks for check with on Tuesday) Diet/Activity/Treatments Diet: Diet as Tolerated Activity: 1. Routine care 2. No driving for 2 weeks. 3. Call or return for uncontrolled pain, fever, intractable nausea or vomiting, trouble with urination, heavy vaginal bleeding greater than 1 pad per hour, suicidal/homicidal thoughts, signs or symptoms of infection, or any other concerns. Visit Report/Discharge Packet Instructions: DI for Labor and Delivery, Vaginal Discharge Data Primary Care Provider: Belen Santiago
== END 2021-02-14 14:49 | disposition home or self-care (01) | DRG 807 ==
PROVIDERS: Nurse Practitioner Obstetrics & Gynecology; Admitting Provider Family Medicine; PCP Family Medicine; Referring Provider Family Medicine; Visit Provider Family Medicine
DX: O60.14X0 Preterm labor third trimester with preterm delivery third trimester, not applicable or unspecified (principal); Z37.0 Single live birth; Z3A.38 38 weeks gestation of pregnancy; O99.824 Streptococcus B carrier state complicating childbirth; O70.0 First degree perineal laceration during delivery; Z20.822 Contact with and (suspected) exposure to COVID-19
CPT/HCPCS: 01967; 36415; 59025; 59050; 85014; 85018; 85025; 86850; 86900; 86901; 87635; C9803; G0378; G0379; J2210; J2590

== ENCOUNTER 2021-05-23 11:41 | Emergency (ER) | payer BC, SELFPAY ==
[2021-05-23 11:41] VITALS: BP 155/77; PULSE 89; RESP 16; TEMP 36.6; O2SAT 100; BMI 25.8
--- NOTE | 2021-05-23 12:27 | ED_ITS ---
HPI - Female Genitourinary General Chief complaint: Vaginal Bleeding Stated complaint: 3 mo post- heavy bleeding Time Seen by Provider: 05/23/21 11:58 History of Present Illness HPI Narrative: 30-year-old female presenting today with vaginal bleeding. She is 3 months had a spontaneous vaginal delivery February 13, she then states that she had some excessive vaginal bleeding afterwards for which she got some clotting medicine for (assuming TXa) however, I am not finding record of this. She says that she blood have leave for the 1st 2 weeks after which included passing a softball size clot. She says bleeding significantly decreased after that. It sounds as though she has had some loose bleeding very light since then however over the last 2-3 days she has had increased bleeding going through pad and tampon every 2 hours. She had some abdominal cramping and pain but not significant. She denies lightheadedness or dizziness. What bleeding she was to be getting worse. She is noted to be quite tachycardic but overall appears well. Related Data Previous Rx's Medication Instructions Recorded docusate sodium 100 mg capsule 100 mg PO DAILY #30 cap 02/02/20 (DOK) ibuprofen 600 mg tablet 600 mg PO Q6HR PRN #45 tab 02/14/21 vitamin 1 tab PO DAILY #90 tab 02/14/21 no.76-iron,carbonyl 29 mg iron-folic acid 1 mg tablet (Prenatabs Rx) medroxyprogesterone 10 mg tablet 10 mg PO DAILY #10 tab 05/23/21 (Provera) Allergies Allergy/AdvReac Type Severity Reaction Status Date / Time Penicillins [PENICILLINS] Allergy Mild full body Verified 02/01/20 05:14 rash Review of Systems Review of Systems Narrative: GENERAL: Denies chills, fatigue, malaise, fever, sweats, travel HEENT: Denies sinus pain, ear pain, sore throat, difficulty swallowing, neck pain RESPIRATORY: Denies dyspnea, cough, wheezing, hemoptysis, sputum. CARDIOVASCULAR: Denies chest pain, palpitations, orthopnea, edema GASTROINTESTINAL: Denies nausea, vomiting, abdominal pain, diarrhea, constipation, melena. : Denies dysuria, frequency, incontinence, hematuria, urinary retention, flank pain. SHORTAGE WORKER: See HPI MUSCULOSKELETAL: Denies weakness, joint pain, or bony pain SKIN: No rash, no erythema, no pruritus NEUROLOGIC: Denies weakness, dizziness, headache, numbness, change in speech, confusion PSYCHIATRIC: No concerning psychosocial issues. 12 point review of systems is negative except for those stated above and HPI Patient History Medical History (Updated 05/23/21 @ 14:39 by Theresa Rodriguez DO) Psoriasis Vaginal delivery Exam Initial Vital Signs Initial Vital Signs: Vital Signs Temperature 97.9 F 05/23/21 11:41 Pulse Rate 89 05/23/21 11:41 Respiratory Rate 16 05/23/21 11:41 Blood Pressure 155/77 H 05/23/21 11:41 Pulse Oximetry 100 05/23/21 11:41 GENERAL: Alert well-appearing 30-year-old female in no acute distress. HEENT: Head atraumatic,EOMI, pupils reactive, face symmetric, moist mucous membranes CARDIOVASCULAR: Tachycardic regular no murmurs RESPIRATORY: Breath sounds equal bilaterally, no wheezes rales or rhonchi. ABDOMEN: Soft, nontender. Normoactive bowel sounds all 4 quadrants. No guarding or rebound. SHORTAGE WORKER: Vaginal bleeding no sign of external or internal trauma Vaginal bleeding in cervix is quite posterior visualize no significant clotting no evidence of trauma EXTREMITIES: Normal range of motion, no clubbing or edema. Neurovascularly intact NEUROLOGICAL: Alert and oriented x4.Normal gait and speech. Cranial nerves II through XII grossly intact. SKIN: Warm, dry, no laceration, no petechiae, no rashes or lesions. Course Orders Ordered: ED Orders 05/23/21 12:18 Complete Blood Count AUTO DIFF Stat Comprehensive Metabolic Panel Stat Lactate (Lactic Acid) Stat Test Serum,Qual Stat Type and Screen Stat 05/23/21 12:41 US pelvic complete Stat 05/23/21 12:55 Partial Thromboplastin Time Stat Prothrombin Time INR Stat Discontinued Medications Sodium Chloride (Normal Saline 0.9%) 1,000 mls @ 1,000 mls/hr IV BOLUS ONE Stop: 05/23/21 13:09 Last Admin: 05/23/21 12:50 Dose: 1,000 mls/hr Documented by: NATANAEL Medroxyprogesterone Acetate (Medroxyprogesterone Acetate 10 Mg Tablet) 20 mg PO NOW ONE Stop: 05/23/21 13:55 Last Admin: 05/23/21 14:38 Dose: 20 mg Documented by: NATANAEL Vital Signs Vital signs: Vital Signs - 8 hr 05/23/21 11:41 05/23/21 12:44 05/23/21 14:03 Temperature 97.9 F Pulse Rate 89 102 H 104 H Respiratory Rate 16 14 16 Blood Pressure 155/77 H 131/78 134/85 Pulse Oximetry 100 98 98 05/23/21 15:01 Temperature Pulse Rate 90 Respiratory Rate 26 H Blood Pressure 114/59 L Pulse Oximetry 98 MDM - Female Genitourinary Lab Data Result diagrams: 05/23/21 12:18 05/23/21 12:18 Labs: Lab Results 05/23/21 05/23/21 05/23/21 Range/Units 12:18 12:18 12:18 WBC 7.7 (4.5-11.0) X10^3/uL RBC 4.75 (4.0-5.2) X10^6/uL Hgb 14.3 (12.0-16.0) g/dL Hct 42.9 (36-46) % MCV 90.2 (80-100) fL MCH 30.0 (26-34) PG MCHC 33.3 (30-36) % RDW 13.6 (11.6-14.8) % Plt Count 218 (150-400) X10^3/uL Neut % (Auto) 59.0 (50-75) % Lymph % (Auto) 28.8 (25-40) % Story % (Auto) 10.0 (3-14) % Eos % (Auto) 1.5 L (2-4) % Baso % (Auto) 0.7 (0-2) % Neut # (Auto) 4500 (8363-6882) /uL Lymph # (Auto) 2200 (0070-0944) /uL Story # (Auto) 800 (0-900) /uL Eos # (Auto) 100 (0-450) /uL Baso # (Auto) 100 (0-100) /uL PT (10.1-12.7) SECONDS INR (0.9-1.3) APTT (26.4-36.2) SECONDS Sodium 140 (137-145) mmol/L Potassium 4.1 (3.4-5.1) mmol/L Chloride 100 (98-107) mmol/L Carbon Dioxide 32 (22-32) mmol/L BUN 10 (7-17) mg/dL Creatinine 0.62 (0.52-1.04) mg/dL Estimated GFR > 60.0 (>60) mL/min BUN/Creatinine Ratio 16.1 (6-22) Glucose 111 H (70-100) mg/dL Lactate 1.1 (0.7-2.1) mmol/L Calcium 9.2 (8.4-10.2) mg/dL Total Bilirubin 0.4 (0.2-1.3) mg/dL AST 19 (14-36) IU/L ALT 34 (<35) IU/L Alkaline Phosphatase 79 (38-126) U/L Total Protein 7.9 (6.3-8.2) g/dL Albumin 4.7 (3.5-5.0) g/dL Globulin 3.2 (1.7-4.1) g/dL Albumin/Globulin Ratio 1.5 (1.0-2.8) Serum , Qual (Negative) Blood Type Antibody Screen 05/23/21 05/23/21 05/23/21 Range/Units 12:18 12:18 12:55 WBC (4.5-11.0) X10^3/uL RBC (4.0-5.2) X10^6/uL Hgb (12.0-16.0) g/dL Hct (36-46) % MCV (80-100) fL MCH (26-34) PG MCHC (30-36) % RDW (11.6-14.8) % Plt Count (150-400) X10^3/uL Neut % (Auto) (50-75) % Lymph % (Auto) (25-40) % Story % (Auto) (3-14) % Eos % (Auto) (2-4) % Baso % (Auto) (0-2) % Neut # (Auto) (3223-2407) /uL Lymph # (Auto) (4311-2488) /uL Story # (Auto) (0-900) /uL Eos # (Auto) (0-450) /uL Baso # (Auto) (0-100) /uL PT 12.2 (10.1-12.7) SECONDS INR 1.1 (0.9-1.3) APTT 32 (26.4-36.2) SECONDS Sodium (137-145) mmol/L Potassium (3.4-5.1) mmol/L Chloride (98-107) mmol/L Carbon Dioxide (22-32) mmol/L BUN (7-17) mg/dL Creatinine (0.52-1.04) mg/dL Estimated GFR (>60) mL/min BUN/Creatinine Ratio (6-22) Glucose (70-100) mg/dL Lactate (0.7-2.1) mmol/L Calcium (8.4-10.2) mg/dL Total Bilirubin (0.2-1.3) mg/dL AST (14-36) IU/L ALT (<35) IU/L Alkaline Phosphatase (38-126) U/L Total Protein (6.3-8.2) g/dL Albumin (3.5-5.0) g/dL Globulin (1.7-4.1) g/dL Albumin/Globulin Ratio (1.0-2.8) Serum , Qual Negative (Negative) Blood Type A Positive Antibody Screen Negative Imaging Data US - SHORTAGE WORKER: Radiologist's Impression: PROCEDURE:? US PELVIC COMPLETE ? INDICATIONS:? SIGNIFICANT VAGINAL BLEEDING ? TECHNIQUE:? Real-time scanning was performed of the pelvic organs, with image documentation.? Additional endovaginal scanning was necessary due to incomplete visualization of the adnexal and endometrial structures by transabdominal scanning.? ? COMPARISON:? None. ? FINDINGS:? ?? Uterus:? Uterus is normal in size at 8.5 x 5.5 x 4.3 cm.? The endometrium measures 9.5 mm in combined thickness.? Fluid in the endometrial canal consistent with blood products.? No evidence of retained products of conception. ? Ovaries:? Right and left ovaries measure 3.2 x 1.9 x 1.5 cm and 3.7 x 1.6 x 1.3 cm respectively.? Both ovaries have appropriate echotexture and vascularity without torsion. ? Other: ? No pathologic free abdominal or pelvic fluid. ? IMPRESSION:? Unremarkable ultrasound the pelvis.? No evidence of retained products of conception. ? Approved by: Arun Cummings M.D. on 05/23/2021 at 13:04? MDM Narrative Medical decision making narrative: Patient initially tachycardic but hemodynamically stable heart rate improved with IV fluids. Hemoglobin hematocrit are stable and actually improved from previous. Ultrasound does not show any sign of retained products which would be abnormal after 3 months and no new identified. 1415 Dr. Loco agrees with starting provera and out patient follow up Discharge Plan Departure Patient Disposition: Home Clinical Impression: Vaginal bleeding Instructions: DI for Vaginal Bleeding Activity Restrictions/Additional Instructions: *You have been diagnosed with vaginal bleeding *What to do: It appears that you have restarted her menstrual cycle. I am sorry that it is so heavy. *Continue to take medications as directed Provera 10 mg once daily for 10 days--> Sent to [facility] [place][note 3] *Follow up with your primary care provider in 2-3 days Please follow-up with Dr. Santiago next week, call Tuesday to schedule appointment they are aware of your emergency department visit *Return to ER if you should have increasing bleeding more than super pad or tampon in 1 hour, dizziness, lightheadedness, shortness of breath palpitations passing our increasing pain or any new, worsening or concerning symptoms Prescriptions: New medroxyprogesterone [Provera] 10 mg tablet 10 mg PO DAILY Qty: 10 RF: 0 No Action ibuprofen 600 mg Tablet 600 mg PO Q6HR PRN (Reason: Pain, Mild (1-3)) Qty: 45 RF: 1 Prenatabs Rx 29 mg iron- 1 mg Tablet 1 tab PO DAILY Qty: 90 RF: 3 docusate sodium [DOK] 100 mg Capsule 100 mg PO DAILY Qty: 30 RF: 0 Referrals: Belen Santiago MD [Primary Care Provider] -
--- NOTE | 2021-05-23 12:41 | DI.US.S_ITS ---
PROCEDURE: US PELVIC COMPLETE INDICATIONS: SIGNIFICANT VAGINAL BLEEDING TECHNIQUE: Real-time scanning was performed of the pelvic organs, with image documentation. Additional endovaginal scanning was necessary due to incomplete visualization of the adnexal and endometrial structures by transabdominal scanning. COMPARISON: None. FINDINGS: Uterus: Uterus is normal in size at 8.5 x 5.5 x 4.3 cm. The endometrium measures 9.5 mm in combined thickness. Fluid in the endometrial canal consistent with blood products. No evidence of retained products of conception. Ovaries: Right and left ovaries measure 3.2 x 1.9 x 1.5 cm and 3.7 x 1.6 x 1.3 cm respectively. Both ovaries have appropriate echotexture and vascularity without torsion. Other: No pathologic free abdominal or pelvic fluid. IMPRESSION: Unremarkable ultrasound the pelvis. No evidence of retained products of conception. Approved by: Arun Cummings M.D. on 05/23/2021 at 13:04
[2021-05-23 12:44] VITALS: BP 131/78; PULSE 102; RESP 14; O2SAT 98
[2021-05-23 12:47] LABS: Add Manual Diff / Slide Review NO; Basophils Absolute Auto 100 /uL (0-100); Basophils Percent Auto 0.7 % (0-2); Eosinophils Absolute Auto 100 /uL (0-450); Eosinophils Percent Auto 1.5 % (2-4); Hematocrit 42.9 % (36-46); Hemoglobin 14.3 g/dL (12.0-16.0); Lymphocytes Absolute Auto 2200 /uL (1100-4500); Lymphocytes Percent Auto 28.8 % (25-40); Mean Corpuscular HGB Conc 33.3 % (30-36); Mean Corpuscular Volume 90.2 fL (80-100); Monocytes Absolute Auto 800 /uL (0-900); Neutrophils Absolute Auto 4500 /uL (1500-7000); Platelet Count 218 X10^3/uL (150-400); Red Blood Cell Count 4.75 X10^6/uL (4.0-5.2); Red Cell Distribution Width 13.6 % (11.6-14.8); White Blood Cell Count 7.7 X10^3/uL (4.5-11.0)
[2021-05-23] MEDS: SODIUM CHLORIDE 0.9% 1,000 ML 1000 ML IV (12:50)
[2021-05-23 12:59] LABS: Lactate (Lactic Acid) 1.1 mmol/L (0.7-2.1)
[2021-05-23 13:00] LABS: Alanine Aminotransferase 34 IU/L (<35); Albumin 4.7 g/dL (3.5-5.0); Albumin Globulin Ratio 1.5 (1.0-2.8); Alkaline Phosphatase 79 U/L (38-126); Aspartate Aminotransferase 19 IU/L (14-36); BUN Creatinine Ratio 16.1 (6-22); Bilirubin Total 0.4 mg/dL (0.2-1.3); Blood Urea Nitrogen 10 mg/dL (7-17); Calcium 9.2 mg/dL (8.4-10.2); Carbon Dioxide 32 mmol/L (22-32); Chloride 100 mmol/L (98-107); Estimated Glomerular Filt Rate > 60.0 mL/min (>60); Globulin 3.2 g/dL (1.7-4.1); Glucose 111 mg/dL (70-100); HEMOLYSIS < 15 (0-50); Potassium 4.1 mmol/L (3.4-5.1); Sodium 140 mmol/L (137-145); Total Protein 7.9 g/dL (6.3-8.2)
[2021-05-23 13:06] LABS: INR 1.1 (0.9-1.3); Prothrombin Time 12.2 SECONDS (10.1-12.7)
[2021-05-23 13:07] LABS: Pregnancy Test Serum,Qual Negative (Negative)
[2021-05-23 13:09] LABS: PTT Partial Thromboplastin Tim 32 SECONDS (26.4-36.2)
[2021-05-23 14:03] VITALS: BP 134/85; PULSE 104; RESP 16; O2SAT 98
[2021-05-23] MEDS: MEDROXYPROGESTERONE ACETATE 10 MG TABLET 20 MG PO (14:38)
[2021-05-23 15:01] VITALS: BP 114/59; PULSE 90; RESP 26; O2SAT 98
== END 2021-05-23 15:03 | disposition home or self-care (01) ==
PROVIDERS: Emergency Provider Emergency Medicine; PCP Family Medicine
DX: N93.9 Abnormal uterine and vaginal bleeding, unspecified (principal); R00.0 Tachycardia, unspecified
CPT/HCPCS: 36415; 76830; 76856; 80053; 83605; 84703; 85025; 85610; 85730; 86850; 86900; 86901; 96360; 99284

== ENCOUNTER → 2022-06-24 08:51 | Outpatient (CLI) | payer BC, SELFPAY ==
--- NOTE | 2022-06-24 | DI.US.S_ITS ---
PROCEDURE: US PELVIC COMPLETE INDICATIONS: Abnormal uterine and vaginal bleeding, unspecified TECHNIQUE: Real-time scanning was performed of the pelvic organs, with image documentation. Additional endovaginal scanning was necessary due to incomplete visualization of the adnexal and endometrial structures by transabdominal scanning. COMPARISON: [facility], , US PELVIC COMPLETE, 05/23/2021, 13:32. FINDINGS: Uterus: Uterus is anteverted and normal in size at 10.1 x 4.3 x 5 point cm. The myometrium is homogeneous. The endometrium measures approximately 4 mm combined thickness. The margins of the endometrial stripe are not well defined. No abnormal vascularity can be seen. Ovaries: The right ovary measures 3.8 x 2 x 2.9 cm, with a calculated ovarian volume of 11.7 cc. The left ovary measures 3.2 x 1.5 x 1 cm, with a calculated ovarian volume of 2.4 cc. The ovaries have a normal sonographic appearance. Less than 12 follicles can be seen in each ovary. No adnexal masses are seen. Other: No pathologic free abdominal or pelvic fluid. Overall scan quality is limited by bowel gas. IMPRESSION: The endometrial stripe is not thickened, however its margins are not well-defined. Please consider adenomyosis. If it would be helpful for clinical management decision making in this patient with this given history, please consider a dedicated gynecological protocol MRI (without and with contrast) for further evaluation (assuming that there is no contraindication). We strive to produce accurate, complete, and clear reports of imaging services. To assist us in improving patient care, this report was composed using standard report templates and voice recognition software. Therefore, it may contain abnormal punctuation, insertions and/or omissions. Occasional wrong-word or sound-alike substitutions may occur. Though we review the report and make efforts to correct it, we do recommend that the report be read carefully in proper context to recognize any text inaccuracies. Dictated by: Ravindra Khan M.D. on 06/24/2022 at 10:10 Approved by: Ravindra Khan M.D. on 06/24/2022 at 10:11
== END ==
PROVIDERS: PCP Family Medicine; Referring Provider Family Medicine; Visit Provider Family Medicine
DX: N93.9 Abnormal uterine and vaginal bleeding, unspecified (principal)
CPT/HCPCS: 76830; 76856; 93976

== ENCOUNTER → 2023-03-19 07:58 | Outpatient (CLI) | payer BC, SELFPAY | PROVIDERS: PCP Family Medicine; Visit Provider Physician Assistant | DX: J02.9 Acute pharyngitis, unspecified (principal) | CPT/HCPCS: 87070; 87077; 87185 ==